=== PATIENT | female | born 1985 | race Caucasian/White ===

== ENCOUNTER → 2016-10-19 | Outpatient (CLI) | payer OTHER | LOC: FIMAGING 13:01 | PROVIDERS: ATTEND Student in an Organized Health Care Education/Training Program | DX: Z34.83 Encounter for supervision of other normal pregnancy, third trimester (principal); Z3A.36 36 weeks gestation of pregnancy ==

== ENCOUNTER → 2018-07-18 | Outpatient (CLI) | payer OTHER | LOC: FIMAGING 11:53 | PROVIDERS: ATTEND Student in an Organized Health Care Education/Training Program | DX: O35.8XX0 Maternal care for other (suspected) fetal abnormality and damage, not applicable or unspecified (principal); Z3A.21 21 weeks gestation of pregnancy ==

== ENCOUNTER → 2018-08-15 | Outpatient (CLI) | payer OTHER | LOC: FIMAGING 08:30 ==